=== PATIENT | female | born 1950 | race Caucasian/White ===

== ENCOUNTER 2020-04-02 07:28 | Outpatient (CLI) | payer OTHER, SELFPAY ==
[2020-04-02 08:22] LABS: Add Urine Microscopic? YES; Appearance Urine Cloudy (Clear); Bacteria Urine Trace /hpf; Bilirubin Urine Negative (Negative); Blood Urine Negative (Negative); Color Urine Yellow (Yellow); Glucose Urine UA Negative (Negative); Ketones Urine Negative (Negative); Leukocyte Esterase Ur 3+ LEU/UL (NEGATIVE); Mucus Urine Rare /lpf; Nitrate Urine Negative (Negative); Protein Urine 1+ mg/dL (Negative); Specific Grav Ur 1.018 (1.001-1.035); Squamous Epithelial Cell Urine Occasional /hpf (Few); WBC Urine >75 /hpf (0-3)
== END 2020-04-02 07:29 | disposition home or self-care (01) ==
PROVIDERS: PCP Emergency Medicine; Visit Provider Emergency Medicine
DX: R39.9 Unspecified symptoms and signs involving the genitourinary system (principal)
CPT/HCPCS: 81001

== ENCOUNTER 2020-05-08 06:49 | Outpatient (CLI) | payer OTHER, SELFPAY ==
--- NOTE | ~2020-05-08 | XR_ITS ---
EXAMINATION: XR lumbar spine 2-3V DATE: 05/08/2020 07:08 INDICATION: Strain of the muscle fascia and tendon of the lower back TECHNIQUE: Anteroposterior and lateral views of the lumbar spine, and cone-down lateral view of the l umbosacral junction were obtained. COMPARISON: CT, 10/17/2017 FINDINGS: There is no fracture. The vertebral body heights are maintained. There are 2 mm of retrolis thesis of L4 on L5. There is severe loss of intervertebral disc space height at L5-S1. There is mild loss of intervertebral disc space height at L1-2 and L3-4. Small degenerative osteophytes project fro m the anterior endplates of multiple vertebral bodies. There is mild facet osteoarthritis of the lowe r lumbar spine. Calcified atherosclerosis is noted. There is a moderate volume of colonic stool. 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 IMPRESSION: 1. Severe lumbar spondylosis at L5-S1 without acute findings or significant interval change. Otherwis e, mild lumbar spondylosis. Reviewed, dictated and finalized at location A. IMPRESSION: 1. Severe lumbar spondylosis at L5-S1 without acute findings or significant int erval change. Otherwise, mild lumbar spondylosis.
[2020-05-08 08:08] LABS: Alanine Aminotransferase 19 U/L (4-35); Albumin Level 4.2 g/dL (3.5-5.1); Alkaline Phosphatase 67 U/L (38-126); Anion Gap 4 mmol/L (8-16); Aspartate Amino Transferase 31 U/L (14-36); Bilirubin,Total 0.5 mg/dL (0.2-1.3); Blood Urea Nitrogen 13 mg/dL (7-17); Calcium 9.3 mg/dL (8.4-10.2); Carbon Dioxide 32 mmol/L (22-30); Chloride 102 mmol/L (98-107); Cholesterol 229 mg/dL (0-200); Estimated Glomerular Filt Rate > 60; Glucose 100 mg/dL (65-105); HDL Direct 45 mg/dL; Potassium 4.9 mmol/L (3.4-5.0); Sodium 138 mmol/L (137-145); Triglycerides 134 mg/dL (<150)
[2020-05-08 08:19] LABS: LDL Cholesterol Direct 137 mg/dL
[2020-05-11 22:55] LABS: Vitamin D 1,25 (OH)2 Total 53 pg/mL (18-72); Vitamin D2 1,25 (OH)2 <8 pg/mL; Vitamin D3 1,25 (OH)2 53 pg/mL
== END 2020-05-08 06:50 | disposition home or self-care (01) ==
PROVIDERS: PCP Emergency Medicine; Visit Provider Emergency Medicine
DX: S39.012A Strain of muscle, fascia and tendon of lower back, initial encounter (principal); E78.5 Hyperlipidemia, unspecified; R39.9 Unspecified symptoms and signs involving the genitourinary system; R53.83 Other fatigue; E55.9 Vitamin D deficiency, unspecified; X58.XXXA Exposure to other specified factors, initial encounter; M47.896 Other spondylosis, lumbar region
CPT/HCPCS: 36415; 72100; 80053; 80061; 82652; 84443

== ENCOUNTER 2020-08-10 15:48 | Outpatient (CLI) | payer OTHER, SELFPAY ==
--- NOTE | ~2020-08-10 | MM_ITS ---
EXAMINATION: MM screening mireille RT w luz maria HISTORY: Screening TECHNIQUE: Craniocaudal and mediolateral oblique 3-D tomosynthesis images were obtained and synthetic 2-D images were generated. CAD analysis was submitted and interpreted. COMPARISON: Comparison to multiple prior studies sequentially, with oldest reviewed study dated 04/2015. BREAST PARENCHYMAL COMPOSITION: There are scattered areas of fibroglandular density. FINDINGS: There is no evidence of suspicious mass, calcification, or architectural distortion to sugg est malignancy in the right breast. There has been no suspicious interval change. IMPRESSION: 1. No mammographic evidence of malignancy. 2. Recommend routine screening mammography in one year. BI-RADS Category 1: Negative Reviewed, dictated and finalized at location A. E EXPERT
== END 2020-08-10 15:49 | disposition home or self-care (01) ==
LOC: ANHIMG 15:52
PROVIDERS: PCP Emergency Medicine; Visit Provider Obstetrics & Gynecology
DX: Z12.31 Encounter for screening mammogram for malignant neoplasm of breast (principal)
CPT/HCPCS: 77063; 77067

== ENCOUNTER 2020-09-11 08:01 | Outpatient (CLI) | payer OTHER, SELFPAY ==
--- NOTE | ~2020-09-11 | XR_ITS ---
XR foot RT min 3V 09/11/2020 08:17 Indication: Right foot pain Procedure: 2 views right foot Comparison: No prior studies for comparison. Findings: No acute fracture, subluxation or dislocation. No significant soft tissue abnormality. No f oreign body. Lisfranc joint intact. No foreign bodies. Impression: 1: No acute bone or joint abnormality. Reviewed, dictated and finalized at location A. YSIS RN Impression: 1: No acute bone or joint abnormality.
--- NOTE | ~2020-09-11 | XR_ITS ---
XR foot LT min 3V 09/11/2020 08:17 Indication: Left foot pain Procedure: 4 views left foot Comparison: No prior studies for comparison. Findings: No fracture or traumatic malalignment. Mild osteoarthritis of the first MTP joint. Lisfranc joint intact. No sclerotic or lytic lesions. Impression: 1: No acute bone or joint abnormality. Reviewed, dictated and finalized at location A. RAFT WORKER Impression: 1: No acute bone or joint abnormality.
== END 2020-09-11 08:02 | disposition home or self-care (01) ==
LOC: ANHIMG 08:05
PROVIDERS: PCP Emergency Medicine; Visit Provider Emergency Medicine
DX: S96.919A Strain of unspecified muscle and tendon at ankle and foot level, unspecified foot, initial encounter (principal); X58.XXXA Exposure to other specified factors, initial encounter
CPT/HCPCS: 73630

== ENCOUNTER 2020-11-28 10:38 | Outpatient (CLI) | payer OTHER, SELFPAY ==
--- NOTE | 2020-11-28 11:30 | NEURO_ITS ---
Impression: # Complains of paresthesia of feet. # Normal motor and sensory nerve conduction study. # No evidence of tarsal tunnel syndrome. # Normal needle/EMG exam. # Clinical correlation recommended. Nerve Conduction Studies Anti Sensory Summary Table Stim Site NR Peak (ms) P-T Amp (?V) Site1 Site2 Delta-P (ms) Dist (cm) Yahir (m/s) Left Sup Fibular Anti Sensory (Ant Lat Mall) 14 cm 3.0 12.8 14 cm Ant Lat Mall 3.0 16.0 53 Right Sup Fibular Anti Sensory (Ant Lat Mall) 14 cm 3.3 8.4 14 cm Ant Lat Mall 3.3 16.0 48 Left Sural Anti Sensory (Lat Mall) Calf 3.5 9.4 Calf Lat Mall 3.5 16.0 46 Right Sural Anti Sensory (Lat Mall) Calf 3.5 6.2 Calf Lat Mall 3.5 16.0 46 Motor Summary Table Stim Site NR Onset (ms) O-P Amp (mV) Site1 Site2 Delta-0 (ms) Dist (cm) Yahir (m/s) Left Lateral Plantar Motor (ADM) Med Mall 4.5 1.0 Right Lateral Plantar Motor (ADM) Med Mall 4.3 1.7 Left Peroneal Motor (Vastus Med) Ankle 4.2 1.0 Popit Ankle 7.7 37.0 48 Popit 11.9 0.8 Right Peroneal Motor (Vastus Med) Ankle 4.5 1.5 Popit Ankle 7.1 35.0 49 Popit 11.6 1.5 Left Tibial Motor (Abd Anderson Brev) Ankle 4.6 3.0 Knee Ankle 9.1 42.0 46 Knee 13.7 1.7 Right Tibial Motor Run #1 (Abd Anderson Brev) Ankle 4.5 7.6 Knee Ankle 9.3 39.0 42 Knee 13.8 4.2 F Wave Studies NR F-Lat (ms) L-R F-Lat (ms) Left Peroneal (Mrkrs) (EDB) 50.16 0.44 Right Peroneal (Mrkrs) (EDB) 50.60 0.44 Left Tibial (Mrkrs) (Abd Hallucis) 51.27 1.19 Right Tibial (Mrkrs) (Abd Hallucis) 50.09 1.19 EMG Side Muscle Nerve Root Ins Act Fibs Amp Dur Recrt Comment Right AntTibialis Dp Br Fibular L4-5 Nml Nml Nml Nml Nml Right Gastroc Tibial S1-2 Nml Nml Nml Nml Nml Right Fibularis Long Sup Br Fibular L5-S1 Nml Nml Nml Nml Nml Right Flex Dig Long Tibial L5-S2 Nml Nml Nml Nml Nml Right Ext Dig Brev Dp Br Fibular L5, S1 Nml Nml Nml Nml Nml Left AntTibialis Dp Br Fibular L4-5 Nml Nml Nml Nml Nml Left Gastroc Tibial S1-2 Nml Nml Nml Nml Nml Left Fibularis Long Sup Br Fibular L5-S1 Nml Nml Nml Nml Nml Left Flex Dig Long Tibial L5-S2 Nml Nml Nml Nml Nml Left Ext Dig Brev Dp Br Fibular L5, S1 Nml Nml Nml Nml Nml MTDD
== END 2020-11-28 10:39 | disposition home or self-care (01) ==
PROVIDERS: PCP Emergency Medicine; Visit Provider Emergency Medicine
DX: R20.2 Paresthesia of skin (principal)
CPT/HCPCS: 95886; 95911

== ENCOUNTER 2021-03-20 14:14 | Outpatient (CLI) | payer OTHER, SELFPAY ==
--- NOTE | ~2021-03-20 | CT_ITS ---
EXAMINATION:CT diagnostic chest wo con DATE: 03/20/2021 14:51 INDICATION: Bronchitis. TECHNIQUE: Computed tomography (CT) of the chest was performed without intravenous contrast. Automate d exposure control and iterative reconstruction technique were employed. The dose-length product (DLP ) was 134.44 mGy-cm. COMPARISON: None. FINDINGS: There is mild atelectasis in the inferior lungs. No bronchiectasis or honeycombing. A calci fied left lung nodule is consistent with old granulomatous disease. No pleural effusion. The heart si ze is normal. There are coronary artery calcifications. No pericardial effusion. There are cysts in t he liver measuring up to 7.3 cm. 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 There is sever e thoracic spondylosis. IMPRESSION: 1. No significant lung disease. Reviewed, dictated and finalized at location A.
== END 2021-03-20 14:15 | disposition home or self-care (01) ==
PROVIDERS: PCP Student in an Organized Health Care Education/Training Program; Visit Provider Student in an Organized Health Care Education/Training Program
DX: J40 Bronchitis, not specified as acute or chronic (principal)
CPT/HCPCS: 71250

== ENCOUNTER 2021-04-29 08:08 | Outpatient (CLI) | payer OTHER, SELFPAY ==
--- NOTE | 2021-04-29 12:04 | WPDPFTINT ---
PFT Procedure Performed PFT Procedure Performed Spirometry with Pre/Post Bronchodilator Plethysmography (Lung Vol) Diffusing Cap (DLCO) Flow Vol Loop PFT Interpretation This is a pulmonary function test with pre and post-bronchodilator spirometry, plethysmography and diffusing capacity. The test was performed and results interpreted in accordance with the 2019 and 2005 ATS/ERS Task Force guidelines respectively using the Global Lung Function Initiative-2012 reference equations. Patient demonstrated good effort and cooperation. Reproducibility criteria were met. The quality of the pre bronchodilator spirometry maneuver was Grade A and post bronchodilator spirometry maneuver was Grade A. Findings: Spirometry: The contour the expiratory flow tracing resembles that of a witch's hat . The contour of the inspiratory flow tracing is normal. The pre bronchodilator FVC is 2.51 L, 89% predicted. The pre bronchodilator FEV1 is 1.91 L, 95% predicted. The FEV1: FVC ratio is 76%. The post bronchodilator FVC is 2.60 L, representing a 4% increase. The post bronchodilator FEV1 is 2.11 L, representing a 10% increase. Plethysmography: The total lung capacity is 3.92 L, 81% predicted. The functional residual capacity is 1.88 L, 65% predicted. The residual volume is 1.33 L, 69% predicted. Diffusing capacity: The absolute diffusion capacity is 18.0, 102% predicted. The diffusing capacity corrected for the alveolar volume is 4.89, 137% predicted. Impression: There is a mild restrictive ventilatory abnormality with a normal FEV1. The spirometry is normal without evidence of an obstructive abnormality. There is no significant improvement after inhaling a single dose of albuterol. The diffusing capacity is normal. There are no prior studies for comparison
== END 2021-04-29 08:09 | disposition home or self-care (01) ==
PROVIDERS: PCP Student in an Organized Health Care Education/Training Program; Visit Provider Student in an Organized Health Care Education/Training Program
DX: R05 Cough (principal); R94.2 Abnormal results of pulmonary function studies
CPT/HCPCS: 94060; 94726; 94729

== ENCOUNTER 2021-05-21 06:45 | Outpatient (CLI) | payer OTHER, SELFPAY ==
--- NOTE | ~2021-05-21 | CT_ITS ---
EXAMINATION: CT abdomen pelvis w con INDICATION: Splenic artery aneurysm, pancreatic and liver lesions, history of breast cancer TECHNIQUE: Computed tomographic images of the abdomen and pelvis were obtained after the administrati on of 100 cc of Omnipaque 350 intravenous contrast. The dose-length product (DLP) was 283.84 mGy-cm. Automated exposure control and iterative reconstruction technique were employed. COMPARISON: 10/17/2017 FINDINGS: Minimal dependent atelectasis is present in the lung bases. The heart size is normal. Calci fication the left chest wall likely relates to post mastectomy left breast reconstruction. There are multiple stable cysts of the liver which measure up to 7.2 cm in the left hepatic lobe. The spleen, g allbladder, and adrenal glands are normal. There is a stable 11 mm rim calcified aneurysm of the sple florin artery. A 1.4 cm cystic lesion in the head of the pancreas appears stable accounting for differen dariel in technique. There is no dilatation of the pancreatic duct. Cysts of the kidneys measure up to 1 0 mm on the left. No pathologically enlarged abdominal or pelvic lymph nodes are identified. There is calcified atherosclerosis of the aorta and many of the other arteries. There is no free intraperiton eal gas or evidence of bowel obstruction. A moderate volume of colonic stool is present. There is sev ere lumbar spondylosis at L5-S1. IMPRESSION: 1. Stable rim calcified splenic artery aneurysm. 2. Stable cystic lesion in the uncinate process of the pancreas, likely benign. Follow-up CT or MRI w ithout and with contrast in two years is recommended. Reviewed, dictated and finalized at location A. IMPRESSION: 1. Stable rim calcified splenic artery aneurysm. 2. Stable cystic lesion in the uncinate process of the pancreas, likely benign. Follow-up CT or MRI without and with contrast in two years is recommended.
[2021-05-21 07:22] LABS: Estimated Glomerular Filt Rate > 60
== END 2021-05-21 06:46 | disposition home or self-care (01) ==
PROVIDERS: PCP Student in an Organized Health Care Education/Training Program; Visit Provider Student in an Organized Health Care Education/Training Program
DX: I72.8 Aneurysm of other specified arteries (principal); K86.9 Disease of pancreas, unspecified
CPT/HCPCS: 74177; Q9967

== ENCOUNTER 2021-09-13 08:37 | Outpatient (CLI) | payer OTHER, SELFPAY ==
--- NOTE | ~2021-09-13 | MM_ITS ---
EXAMINATION: MM screening mireille RT w luz maria HISTORY: Screening right mammogram, history of left mastectomy TECHNIQUE: Craniocaudal and mediolateral oblique 3-D tomosynthesis images were obtained and synthetic 2-D images were generated. CAD analysis was submitted and interpreted. COMPARISON: 08/10/2020, 01/25/2019, 01/21/2018 BREAST PARENCHYMAL COMPOSITION: The breast is heterogeneously dense, which may obscure small masses. FINDINGS: There is no evidence of suspicious mass, calcification, or architectural distortion to sugg est malignancy in either breast. There has been no suspicious interval change. IMPRESSION: 1. No mammographic evidence of malignancy. 2. Recommend routine screening mammography in one year. BI-RADS Category 1: Negative Reviewed, dictated and finalized at location A. DRY OR DRY CLEANERS COUNTER CLERK
== END 2021-09-13 08:38 | disposition home or self-care (01) ==
LOC: ANHIMG 08:39
PROVIDERS: PCP Student in an Organized Health Care Education/Training Program; Visit Provider Obstetrics & Gynecology
DX: Z12.31 Encounter for screening mammogram for malignant neoplasm of breast (principal)
CPT/HCPCS: 77063; 77067

== ENCOUNTER 2022-09-18 01:00 | Day surgery (SDC) | payer OTHER, SELFPAY ==
[2022-09-03 13:25] VITALS: BMI 21.4
--- NOTE | 2022-09-17 08:27 | P.PNAN_ITS ---
Anes - Initial Pre Proc Eval Procedure: Operation Date: 09/18/22 08:30 Proposed Procedures p Screening Colonoscopy - Reinier Roth MD Date/Time: 09/17/22 08:27 Surgeon: Reinier Roth MD Pre Op Diagnosis: Hx Colon Polyp Patient Data Age: 72 Gender: F Height: 1.63 m Weight: 56.8 kg Allergies Allergy/AdvReac Type Severity Reaction Status Date / Time paroxetine AdvReac Unknown Nausea and Verified 09/18/22 07:40 Vomiting venlafaxine AdvReac Unknown Nausea and Verified 09/18/22 07:40 Vomiting Home Medications Medication Instructions Recorded Confirmed Type cholecalciferol (vitamin D3) 50 2,000 unit PO DAILY #30 caps 09/14/19 09/03/22 Rx mcg (2,000 unit) capsule (Vitamin D3) sertraline 50 mg tablet (Zoloft) 50 mg PO DAILY #90 tabs 01/08/21 09/03/22 Rx rosuvastatin 10 mg tablet 10 mg PO DAILY 09/03/22 09/03/22 History Patient hx anesthesia problems: none Family hx anesthesia problems: none Results Review: All pre-operative results and documents have been reviewed as part of the pre- operative evaluation. [facility] Past Medical History Medical History (Updated 09/17/22 @ 08:28 by Davy Renteria DO) History of breast cancer Hyperlipidemia Osteoarthritis Osteopenia PONV (postoperative nausea and vomiting) Vitamin D deficiency disease Surgical History Surgical History (Updated 09/17/22 @ 08:28 by Davy Renteria DO) History of appendectomy History of mastectomy left Family History Family History Mother Family history of osteoporosis Family history of malignant neoplasm Family history of glaucoma Family history of arthritis Father Family history of diabetes mellitus in first degree relative Acute myocardial infarction Diabetes mellitus, Onset Age: 59 Family history of cardiovascular disease, Onset Age: 59 Social History Social History Smoking status: Former smoker Tobacco type: cigarettes Alcohol intake: never Anes - Eval Final PreProcedure Day of Procedure 09/17/22 08:27 Patient weight: normal Heart: regular rate and rhythm Lungs: clear to auscultation and normal air movement Airway: Mallampati scale class II Neurological: alert and oriented Last oral intake: >/= 8 hours ASA classification: II Emergent: no Anesthetic plan: proceed Anesthesia type and monitoring: general GIVS and standard monitoring Results Review: All pre-operative results and documents have been reviewed as part of the pre- operative evaluation. Informed Consent: The patient's anesthetic plan and its attendant risks and benefits were discussed with the patient/family/POA. Questions were solicited and answers provided to the satisfaction of the patient/family/POA.
[2022-09-18 07:42] VITALS: BP 119/73; PULSE 80; RESP 18; TEMP 36.3; O2SAT 99
[2022-09-18] MEDS: LACTATED RINGERS 1,000 ML 150 ML IV CONT (07:55)
--- NOTE | 2022-09-18 08:15 | PM.HPGS ---
History of Present Illness History of Present Illness Consent: Risks, benefits, and alternatives have been discussed and questions answered. Patient agrees to proceed with procedure. Chief complaint: Hx Colon Polyp Narrative: Valerie Haji is a 72 year old female Presents for screening colonoscopy. Patient has a prior history of colon polyps. Adenomatous colon polyp removed from the colon 2016. Family history is significant for 3 siblings who have had colon polyps as well. Review of Systems Review of Systems: Review of systems noncontributory. [facility] Past Medical History Medical History (Updated 09/17/22 @ 08:28 by Davy Renteria DO) History of breast cancer Hyperlipidemia Osteoarthritis Osteopenia PONV (postoperative nausea and vomiting) Vitamin D deficiency disease Surgical History Surgical History (Updated 09/17/22 @ 08:28 by Davy Renteria DO) History of appendectomy History of mastectomy left Family History Family History Mother Family history of osteoporosis Family history of malignant neoplasm Family history of glaucoma Family history of arthritis Father Family history of diabetes mellitus in first degree relative Acute myocardial infarction Diabetes mellitus, Onset Age: 59 Family history of cardiovascular disease, Onset Age: 59 Social History Social History Smoking status: Former smoker Tobacco type: cigarettes Alcohol intake: never Meds Home Medications and Allergies Home Medications Medication Instructions Recorded Confirmed Type cholecalciferol (vitamin D3) 50 2,000 unit PO DAILY #30 caps 09/14/19 09/03/22 Rx mcg (2,000 unit) capsule (Vitamin D3) sertraline 50 mg tablet (Zoloft) 50 mg PO DAILY #90 tabs 01/08/21 09/03/22 Rx rosuvastatin 10 mg tablet 10 mg PO DAILY 09/03/22 09/03/22 History Allergies Allergy/AdvReac Type Severity Reaction Status Date / Time paroxetine AdvReac Unknown Nausea and Verified 09/18/22 07:40 Vomiting venlafaxine AdvReac Unknown Nausea and Verified 09/18/22 07:40 Vomiting Vital Signs Vital Signs - 24 hr 09/18/22 07:42 Temperature 97.3 F L Pulse Rate 80 Respiratory Rate 18 Blood Pressure 119/73 Pulse Oximetry 99 Oxygen Delivery Room Air Exam Narrative: Physical exam reveals patient to be alert. Vital signs stable. HEENT exam is unremarkable. Patient is anicteric. Lungs are clear to auscultation and percussion. Heart is without murmur or extra sounds. Abdomen bowel sounds are present soft nontender with no organomegaly. Digital external rectal exam is normal. Assessment and Plan Assessment and plan (1) Colon cancer screening: Code(s): Z12.11 - Encounter for screening for malignant neoplasm of colon Status: Acute Assessment and Plan: Patient presents for neoplasia screening colonoscopy. She has a personal history of colon polyps with an adenomatous colon polyp removed from the colon 2016. Additionally there is a family history of colon polyps in 3 siblings. Follow-up colonoscopy is advised now and at 5 year intervals in the future.
[2022-09-18 08:44] VITALS: BP 112/58; PULSE 71; RESP 19; O2SAT 99
[2022-09-18 08:54] VITALS: BP 122/69; PULSE 62; RESP 15; O2SAT 100
[2022-09-18 09:04] VITALS: BP 130/67; PULSE 61; RESP 19; O2SAT 98
== END 2022-09-18 09:18 | disposition home or self-care (01) ==
PROVIDERS: PCP Student in an Organized Health Care Education/Training Program; Visit Provider Internal Medicine Gastroenterology
PROC: 0DJD8ZZ Inspection of Lower Intestinal Tract, Via Natural or Artificial Opening Endoscopic (ICD-10-PCS; CPT 45378; principal; 2022-09-18 08:30)
DX: Z12.11 Encounter for screening for malignant neoplasm of colon (principal); K64.8 Other hemorrhoids; Z86.010 Personal history of colon polyps; Z83.71 Family history of colonic polyps; E78.5 Hyperlipidemia, unspecified; E55.9 Vitamin D deficiency, unspecified; Z85.3 Personal history of malignant neoplasm of breast; Z87.891 Personal history of nicotine dependence
CPT/HCPCS: G0105; J2704; J7120

== ENCOUNTER → 2023-01-19 14:04 | Outpatient (CLI) | payer OTHER, SELFPAY ==
--- NOTE | ~2023-01-19 | US_ITS ---
EXAMINATION: US soft tissue chest INDICATION: Palpable abnormality at the 6:00 location of the left breast. History of left mastectomy with flap reconstruction. TECHNIQUE: Limited left chest ultrasound is performed in the area of clinical concern. COMPARISON: None available FINDINGS: There is an area of dense acoustic shadowing at the 6:00 location 3.5 cm from the nipple co rresponding to the palpable abnormality of concern. This corresponds to an area of dystrophic postsur gical calcification in the chest wall. No suspicious cystic or solid mass is identified. IMPRESSION: 1. Dystrophic calcification of the left chest wall corresponding to the reported palpable abnormality of concern. Further evaluation at this time should be based on clinical assessment. Continued follow -up physical examination is recommended. BI-RADS Category 2: Benign finding(s). Reviewed, dictated and finalized at location A. IMPRESSION: 1. Dystrophic calcification of the left chest wall corresponding to the reporte d palpable abnormality of concern. Further evaluation at this time should be ba sed on clinical assessment. Continued follow-up physical examination is recomme nded. BI-RADS Category 2: Benign finding(s).
--- NOTE | ~2023-01-19 | MM_ITS ---
EXAMINATION: MM screen RT diag LT w luz maria HISTORY: Screening right mammogram, diagnostic left mammogram for palpable lump of the lower breast a t the 6:00 location status post mastectomy and flap reconstruction TECHNIQUE: Craniocaudal and mediolateral oblique 3-D tomosynthesis images were obtained and synthetic 2-D images were generated. CAD analysis was submitted and interpreted. Mediolateral 3-D tomosynthesi s images of the left breast are also obtained. COMPARISON: 09/13/2021, 01/25/2019, 04/30/2012 BREAST PARENCHYMAL COMPOSITION: The right breast is heterogeneously dense, which may obscure small ma sses. FINDINGS: No suspicious mass, calcification, or architectural distortion are identified in the right breast to suggest malignancy. There has been no suspicious interval change. There is dystrophic calci fication at the site of prior surgical change in the left breast corresponding to the palpable abnorm ality of concern. IMPRESSION: 1. No mammographic evidence of malignancy. 2. Recommend routine screening mammography in one year. BI-RADS Category 2: Benign finding(s). Reviewed, dictated and finalized at location A.
== END ==
PROVIDERS: PCP Student in an Organized Health Care Education/Training Program; Visit Provider Obstetrics & Gynecology
DX: Z12.31 Encounter for screening mammogram for malignant neoplasm of breast (principal); N64.59 Other signs and symptoms in breast
CPT/HCPCS: 76604; 77063; 77065; 77067

== ENCOUNTER 2024-02-08 11:15 | Outpatient (CLI) | payer OTHER, SELFPAY ==
--- NOTE | ~2024-02-08 | MM_ITS ---
EXAMINATION: MM screening mireille RT w luz mraia HISTORY: Screening TECHNIQUE: Craniocaudal and mediolateral oblique 3-D tomosynthesis images were obtained and synthetic 2-D images were generated. CAD analysis was submitted and interpreted. COMPARISON: Comparison to multiple prior studies sequentially, with oldest reviewed study dated 04/30. BREAST PARENCHYMAL COMPOSITION: Not dense: There are scattered areas of fibroglandular density. FINDINGS: There is no evidence of suspicious mass, calcification, or architectural distortion to sugg est malignancy in the right breast. There has been no suspicious interval change. IMPRESSION: 1. No mammographic evidence of malignancy. 2. Recommend routine screening mammography in one year. BI-RADS Category 1: Negative Reviewed, dictated and finalized at location B.
== END 2024-02-08 11:16 ==
PROVIDERS: PCP Obstetrics & Gynecology; Visit Provider Obstetrics & Gynecology
DX: Z12.31 Encounter for screening mammogram for malignant neoplasm of breast (principal)
CPT/HCPCS: 77063; 77067

== ENCOUNTER 2024-08-10 13:18 | Outpatient (CLI) | payer OTHER, SELFPAY ==
--- NOTE | ~2024-08-10 | DEXA_ITS ---
Bone Density Report Name: PHILIP KEATING Age: 74 Sex: Female Ethnicity: White Date of : 1950 Indication: osteopenia; cancer; Referring Provider: STEFANIE MORGAN Study: Bone densitometry was performed. Exam Date: August 10, 2024 Accession number: [id number] Bone Density: Region BMD T-score Z-score Classification AP Spine(L1-L4) 0.894 -1.4 0.9 Osteopenia Femoral Neck (Left) 0.657 -1.7 0.3 Osteopenia Total Hip (Left) 0.731 -1.7 0.0 Osteopenia Femoral Neck (Right) 0.609 -2.2 -0.1 Osteopenia Total Hip (Right) 0.661 -2.3 -0.6 Osteopenia Total Hip Mean 0.696 -2.0 -0.3 Osteopenia World Health Organization criteria for BMD impression classify patients as: Normal (T-score at or above -1.0), Osteopenia (T-score between -1.0 and -2.5), or Osteoporosis (T-score at or below -2.5). Previous Exams: Region Exam Age BMD T-score BMD Change BMD Change Date g/cm2 vs Baseline vs Previous AP Spine (L1-L4) 08/10/2024 74 0.894 -1.4 0.058 (6.9%)* 0.058 (6.9%)* 05/06/2017 66 0.836 -1.9 Total Hip(Left) 08/10/2024 74 0.731 -1.7 -0.052 (-6.7%) -0.052 (-6.7%) 05/06/2017 66 0.783 -1.3 Total Hip(Right) 08/10/2024 74 0.661 -2.3 -0.104 (-13.6% -0.104 (-13.6% 05/06/2017 66 0.765 -1.4 *Denotes significance at 95% confidence level, LSC for AP Spine = 0.022 g/cm2, LSC for Total Hip = 0.027 g/cm2 Clinical Information Provided by Patient: Has used the following medications: Vitamin D, Calcium Has the following medical conditions: Cancer, breast CA Patient maximum height was 65.0 Menopause Age: 51 Drinks caffeinated beverages Onset of menses at age 13 Number of children 2 Impression: The patient has low bone mass, based on the Right Total Hip T-score. The BMD for the Total Hip(Left) decreased, changing by -6.7% since the last DXA exam. The BMD for the Total Hip(Right) decreased, changing by -13.6% since the last DXA exam. Discussion: BONE DENSITY IS LOW AT ONE OR MORE SKELETAL SITES. This patient's lowest T-score is low at one or more skeletal sites. It meets the World Health Organization's (WHO) criteria for ?low bone mass? (T-score between -1.0 and -2.5). The patient's 10-year risk of fracture as calculated by FRAX is less than the threshold where pharmacological therapy is recommended by the National Osteoporosis Foundation (NOF). However, all treatment decisions require clinical judgment and consideration of individual patient factors, including patient preferences, comorbidities, previous drug use, risk factors not captured in the FRAX model (e.g., frailty, falls, vitamin D deficiency, increased bone turnover, interval significant decline in bone density) and possible under or overestimation of fracture risk by FRAX. The patient should follow a healthful lifestyle (good nutrition with adequate calcium and vitamin D, and appropriate weight-bearing exercise). Follow-Up: Consider repeating this study in 2 years to reassess this patient's status, or sooner if there is some new clinical indication. Reported by: LYNDON on 08/10/2024 1:46:00 PM. Reviewed, dictated and finalized at location AJameson COX
== END 2024-08-10 13:19 | disposition home or self-care (01) ==
PROVIDERS: PCP Student in an Organized Health Care Education/Training Program; Visit Provider Obstetrics & Gynecology
DX: M85.89 Other specified disorders of bone density and structure, multiple sites (principal)
CPT/HCPCS: 77080